=== PATIENT | female | born 1940 | race African-American/Black ===

== ENCOUNTER → 2016-05-05 | Outpatient (CLI) | payer MEDICARE ==
[2015-03-22 15:16] VITALS: BP 141/79
[~2016-05-05] MED LIST: ASPI325T4 PO; ASPI81TA2 PO; CARV25TA2 PO; CLOP75TA27 PO; FURO-69 PO; LOSA100T6 PO; METO50TA2 PO; MULT-208 PO; OMEG1CAP6 PO; SIMV20TA3 PO
--- NOTE | 2016-05-07 10:57 | CARD ---
APPROVED REPORT EXAM: Two-dimensional and M-mode echocardiogram with Doppler and color Doppler. Other Information Quality : GoodHR: 76bpm INDICATION Chronic systolic heart failure. 2D DIMENSIONS RVDd2.6 (2.9-3.5cm)Left Atrium(2D)3.9 (1.6-4.0cm) IVSd1.4 (0.7-1.1cm)Aortic Root(2D)2.7 (2.0-3.7cm) LVDd5.0 (3.9-5.9cm)LVOT Diameter1.8 (1.8-2.4cm) PWd1.4 (0.7-1.1cm)LVDs4.1 (2.5-4.0cm) FS (%) 18.6 %SV45.0 ml Aortic Valve AoV Peak Amado.169.3cm/sAoV VTI32.7cm AO Peak GR.11.5mmHgLVOT Peak Amado.104.4cm/s AO Mean GR.5mmHgAVA (VMAX)1.52cm2 Mitral Valve MV E Htvoamvy679.3cm/sMV E Peak Gr.15mmHg MV DECEL [id number] A Juflhqdu346.7cm/s MV E Mean Gr.5mmHgE/A Ratio0.8 MV A Goljcycc637zw Tricuspid Valve TR P. Lgshnifq279vh/sRAP WIMZKDJS1ccAd TR Peak Gr.76xdLhOYEK66vrSj Pulmonary Vein S1 Foqrovuc16.8cm/sD2 Iayswvny08.2cm/s PVa padphwet082ltdj LEFT VENTRICLE The left ventricle is normal size. There is mild concentric left ventricular hypertrophy. Left ventri maryam systolic function is normal. The Ejection Fraction is 50-55%. There is normal LV segmental wall m otion. Transmitral Doppler flow pattern is Grade I-abnormal relaxation pattern. There is no ventricul ar septal defect visualized. RIGHT VENTRICLE The right ventricle is normal size. The right ventricular systolic function is normal. ATRIA The left atrium size is normal. The right atrium size is normal. The interatrial septum is intact wit h no evidence for an atrial septal defect or patent foramen ovale as noted on 2-D or Doppler imaging. AORTIC VALVE The aortic valve is trileaflet. The aortic valve is mildly calcified. Doppler and Color Flow revealed no significant aortic regurgitation. There is no significant aortic valvular stenosis. MITRAL VALVE The mitral valve leaflets are thickened. There is no evidence of mitral valve prolapse. There is no m itral valve stenosis. Doppler and Color Flow revealed mild mitral regurgitation. TRICUSPID VALVE The tricuspid valve is normal in structure. Doppler and Color Flow revealed mild tricuspid regurgitat ion. The PA pressure was estimated at 22 mmHg. There is no tricuspid valve stenosis. PULMONIC VALVE The pulmonary valve is normal in structure. Doppler and Color Flow revealed mild pulmonic valvular re gurgitation. There is no pulmonic valvular stenosis. GREAT VESSELS The aortic root is normal in size. Normal pulmonary venous flow (Doppler). The IVC is normal in size and collapses >50% with inspiration. PERICARDIAL EFFUSION There is no pleural effusion. There is no evidence of significant pericardial effusion. Critical Notification Critical Value: No <Conclusion> The left ventricle is normal size. Left ventricle systolic function is normal. The Ejection Fraction is 50-55%. There is mild concentric left ventricular hypertrophy. There is no significant aortic valvular stenosis. Doppler and Color Flow revealed no significant aortic regurgitation. Doppler and Color Flow revealed mild mitral regurgitation. Doppler and Color Flow revealed mild tricuspid regurgitation. The PA pressure was estimated at 22 mmHg.
== END | disposition home or self-care (01) ==
LOC: ECHO 13:10
PROVIDERS: ATTEND Internal Medicine Cardiovascular Disease
DX: I50.22 Chronic systolic (congestive) heart failure (principal)
CPT/HCPCS: 93306

== ENCOUNTER → 2016-05-13 | Outpatient (CLI) | payer MEDICARE ==
[2015-03-22 15:16] VITALS: BP 141/79
--- NOTE | 2016-05-13 14:06 | RAD ---
DATE: 05/13/2016 EXAM: DIGITAL SCREEN BILAT W/CAD HISTORY: Left breast cancer, right breast screening COMPARISON: 09/25/2014 This study was interpreted with the benefit of Computerized Aided Detection (CAD). FINDINGS: The right breast is heterogeneously dense. No new or enlarging breast densities are seen. Benign type calcifications are stable. No suspicious microcalcifications have developed. Benign-appearing lymph node type densities in the right axillary region are unchanged. IMPRESSION: Stable right mammograms without evidence of malignancy. BI-RADS CATEGORY: 2 BENIGN FINDING(S) RECOMMENDED FOLLOW-UP: 12M 12 MONTH FOLLOW-UP PQRS compliance statement: Patient information was entered into a reminder system with a target due date for the next mammogram. Mammography is a sensitive method for finding small breast cancers, but it does not detect them all and is not a substitute for careful clinical examination. A negative mammogram does not negate a clinically suspicious finding and should not result in delay in biopsying a clinically suspicious abnormality. "Our facility is accredited by the [employer] Mammography Program."
== END | disposition home or self-care (01) ==
LOC: MAMMO 13:05
PROVIDERS: ATTEND Family Medicine
DX: Z12.31 Encounter for screening mammogram for malignant neoplasm of breast (principal)
CPT/HCPCS: G0202; 77067

== ENCOUNTER → 2017-05-18 | Outpatient (CLI) | payer BC | END | disposition home or self-care (01) | LOC: US 14:52 | DX: I70.203 Unspecified atherosclerosis of native arteries of extremities, bilateral legs (principal) | CPT/HCPCS: 93925 ==

== ENCOUNTER 2017-07-26 08:52 | Outpatient (CLI) | payer BC ==
[2017-07-26 09:38] LABS: ANION GAP 7 (6-14); BLOOD UREA NITROGEN 14 mg/dL (7-20); CALCIUM 9.4 mg/dL (8.5-10.1); CARBON DIOXIDE 31 mmol/L (21-32); CHLORIDE 102 mmol/L (98-107); CREATININE 1.3 mg/dL (0.6-1.0); GFR 48.3; GLUCOSE 107 mg/dL (70-99); POTASSIUM 4.2 mmol/L (3.5-5.1); SODIUM 140 mmol/L (136-145)
[2017-07-26 09:41] LABS: HEMATOCRIT 44.7 % (36.0-47.0); HEMOGLOBIN 14.8 g/dL (12.0-15.5); MEAN CORPUSCULAR HEMOGLOBIN 31 pg (25-35); MEAN CORPUSCULAR HGB CONC 33 g/dL (31-37); MEAN CORPUSCULAR VOLUME 95 fL (79-100); PLATELET COUNT 198 x10^3/uL (140-400); RED BLOOD COUNT 4.73 x10^6/uL (3.50-5.40); RED CELL DISTRIBUTION WIDTH 14.6 % (11.5-14.5); WHITE BLOOD COUNT 4.4 x10^3/uL (4.0-11.0)
[2017-07-26 09:53] LABS: PROTHROMBIN TIME PATIENT 12.4 SEC (11.7-14.0)
[2017-07-26] MEDS: IV 1/2 NORMAL SALINE 1,000 ML IV (10:00)
[2017-07-26] MEDS ORDERED: IODIXANOL 320 MG/ML 100 ML VIAL. (10:15)
[2017-07-26] MEDS ORDERED: LIDOCAINE 2% 20 ML VIAL. (10:16)
[2017-07-26] MEDS ORDERED: fentaNYL PF VIAL 100 MCG/2 ML VIAL (10:37)
[2017-07-26] MEDS ORDERED: MIDAZOLAM HCL/PF 2 MG/2 ML VIAL. (10:38)
[2017-07-26] MEDS ORDERED: CONTRAST GIVEN. MC (11:30)
[2017-07-26] MEDS: LIDOCAINE 2% 20 ML VIAL. IJ (11:43)
[2017-07-26] MEDS: IODIXANOL 320 MG/ML 100 ML VIAL. IART (11:43)
[2017-07-26] MEDS: MIDAZOLAM HCL/PF 2 MG/2 ML VIAL. IV (11:44)
[2017-07-26] MEDS: fentaNYL PF VIAL 100 MCG/2 ML VIAL IV (11:44)
[2017-07-26] MEDS ORDERED: MAGNESIUM HYDROXIDE 2,400 MG/30 ML ORAL.SUSP. PO (12:00)
[2017-07-26] MEDS ORDERED: ACETAMINOPHEN 325 MG TABLET. PO (12:00)
[2017-07-26] MEDS ORDERED: hydrALAZINE 20 MG/ML VIAL. (13:58)
[2017-07-26] MEDS: hydrALAZINE 20 MG/ML VIAL. IVP (14:05)
[2017-07-26] MEDS ORDERED: METOPROLOL TART IMMED RELEASE 50 MG TABLET. (15:05)
[2017-07-26] MEDS: METOPROLOL TART IMMED RELEASE 50 MG TABLET. PO (15:20)
== END 2017-07-26 15:50 | disposition home or self-care (01) ==
LOC: CCL 08:52
DX: I70.213 Atherosclerosis of native arteries of extremities with intermittent claudication, bilateral legs (principal); I70.92 Chronic total occlusion of artery of the extremities; I25.10 Atherosclerotic heart disease of native coronary artery without angina pectoris; E78.00 Pure hypercholesterolemia, unspecified; I10 Essential (primary) hypertension; J44.9 Chronic obstructive pulmonary disease, unspecified; F17.210 Nicotine dependence, cigarettes, uncomplicated; Z86.73 Personal history of transient ischemic attack (TIA), and cerebral infarction without residual deficits; Z95.5 Presence of coronary angioplasty implant and graft; Z95.1 Presence of aortocoronary bypass graft; Z90.49 Acquired absence of other specified parts of digestive tract; Z85.3 Personal history of malignant neoplasm of breast; Z90.12 Acquired absence of left breast and nipple; Z87.39 Personal history of other diseases of the musculoskeletal system and connective tissue
CPT/HCPCS: 36246; 36415; 75630; 80048; 85027; 85610; 99152; 99153; C1769; C1892; J0360; J1644; J2250; J3010

== ENCOUNTER → 2017-08-02 | Outpatient (CLI) | payer BC | END | disposition home or self-care (01) | LOC: MAMMO 14:04 | DX: R92.8 Other abnormal and inconclusive findings on diagnostic imaging of breast (principal) | CPT/HCPCS: 77065 ==

== ENCOUNTER 2017-08-09 08:21 | Observation (INO) | payer BC ==
[~2017-08-09 08:21] MED LIST changes: -ASPI325T4 PO; -ASPI81TA2 PO; -CARV25TA2 PO; -CLOP75TA27 PO; -FURO-69 PO; +IODIXANOL 320 MG/ML 100 ML VIAL.; +LIDOCAINE 2% 20 ML VIAL.; -LOSA100T6 PO; -METO50TA2 PO; -MULT-208 PO; -OMEG1CAP6 PO; -SIMV20TA3 PO
[2017-08-09 09:11] LABS: ANION GAP 8 (6-14); BLOOD UREA NITROGEN 20 mg/dL (7-20); CALCIUM 8.9 mg/dL (8.5-10.1); CARBON DIOXIDE 29 mmol/L (21-32); CHLORIDE 104 mmol/L (98-107); CREATININE 1.5 mg/dL (0.6-1.0); GLUCOSE 111 mg/dL (70-99); POTASSIUM 3.8 mmol/L (3.5-5.1); SODIUM 141 mmol/L (136-145)
[2017-08-09 09:13] LABS: HEMATOCRIT 42.2 % (36.0-47.0); HEMOGLOBIN 13.9 g/dL (12.0-15.5); MEAN CORPUSCULAR HEMOGLOBIN 31 pg (25-35); MEAN CORPUSCULAR HGB CONC 33 g/dL (31-37); MEAN CORPUSCULAR VOLUME 94 fL (79-100); PLATELET COUNT 230 x10^3/uL (140-400); RED BLOOD COUNT 4.48 x10^6/uL (3.50-5.40); RED CELL DISTRIBUTION WIDTH 14.5 % (11.5-14.5); WHITE BLOOD COUNT 4.3 x10^3/uL (4.0-11.0)
[2017-08-09 09:28] LABS: INR 0.9 (0.8-1.1); PARTIAL THROMBOPLASTIN TIME 29 SEC (24-38); PROTHROMBIN TIME PATIENT 11.9 SEC (11.7-14.0)
[2017-08-09] MEDS ORDERED: MIDAZOLAM HCL/PF 2 MG/2 ML VIAL. ×2 (09:33→11:18)
[2017-08-09] MEDS ORDERED: fentaNYL PF VIAL 100 MCG/2 ML VIAL ×3 (09:33→13:07)
[2017-08-09] MEDS ORDERED: VERAPAMIL 5 MG/2 ML VIAL. (09:34)
[2017-08-09] MEDS ORDERED: HEPARIN for IV BOLUS 10,000 UNIT/10 ML VIAL. ×2 (09:34→12:31)
[2017-08-09] MEDS ORDERED: NITROGLYCERIN 200 MCG/2 ML SYRINGE FOR CATH/VASC LAB. (09:34)
[2017-08-09] MEDS ORDERED: ATROPINE 1 MG/10 ML DISP.SYRINGE. (10:05)
[2017-08-09] MEDS ORDERED: FAMOTIDINE 20 MG/2 ML VIAL (10:06)
[2017-08-09] MEDS ORDERED: diphenhydrAMINE 50 MG/ML VIAL (10:06)
[2017-08-09] MEDS ORDERED: methylPREDNISolone SOD SUCC PF 125 MG/2 ML VIAL. (10:06)
[2017-08-09] MEDS ORDERED: hydrALAZINE 20 MG/ML VIAL. (10:14)
[2017-08-09] MEDS: NITROGLYCERIN 200 MCG/2 ML SYRINGE FOR CATH/VASC LAB. IART (12:50)
[2017-08-09] MEDS: VERAPAMIL 5 MG/2 ML VIAL. IART (12:52)
[2017-08-09] MEDS: LIDOCAINE 2% 20 ML VIAL. IJ (12:52)
[2017-08-09] MEDS: MIDAZOLAM HCL/PF 2 MG/2 ML VIAL. IV (12:53)
[2017-08-09] MEDS: fentaNYL PF VIAL 100 MCG/2 ML VIAL IV ×3 (12:53→13:31)
[2017-08-09] MEDS: IODIXANOL 320 MG/ML 100 ML VIAL. IART (12:55)
[2017-08-09] MEDS: HEPARIN for IV BOLUS 10,000 UNIT/10 ML VIAL. IART (13:00)
[2017-08-09] MEDS: HEPARIN for IV BOLUS 10,000 UNIT/10 ML VIAL. IV (13:01)
[2017-08-09] MEDS: CLOPIDOGREL BISULFATE 75 MG TABLET PO (13:45)
[2017-08-09] MEDS ORDERED: MORPHINE SULFATE 4 MG/ML DISP.SYRIN. IV (14:30)
[2017-08-09] MEDS: METOPROLOL TART IMMED RELEASE 50 MG TABLET. PO ×2 (15:04→22:05)
[2017-08-09] MEDS: LOSARTAN POTASSIUM 50 MG TABLET. PO (15:04)
[2017-08-09] MEDS: ACETAMINOPHEN 325 MG TABLET. PO (15:05)
[2017-08-09] MEDS: IV 1/2 NORMAL SALINE 1,000 ML IV ×2 (15:05→23:11)
[2017-08-09] MEDS: ASPIRIN ENTERIC COATED 81 MG TABLET.DR. PO (16:30)
[2017-08-09] MEDS: MORPHINE SULFATE 2 MG/ML DISP.SYRIN. IV (18:23)
[2017-08-09] MEDS ORDERED: METOPROLOL TART IMMED RELEASE 50 MG TABLET. PO (21:00)
[2017-08-09] MEDS: SIMVASTATIN 40 MG TABLET. PO ×2 (21:00→22:05)
[2017-08-10] MEDS: IV 1/2 NORMAL SALINE 1,000 ML IV ×2 (00:10→09:11)
[2017-08-10] MEDS: ACETAMINOPHEN 325 MG TABLET. PO (04:09)
[2017-08-10] MEDS: CLOPIDOGREL BISULFATE 75 MG TABLET PO (08:00)
[2017-08-10] MEDS: ASPIRIN ENTERIC COATED 81 MG TABLET.DR. PO (08:00)
[2017-08-10] MEDS ORDERED: ASPIRIN ENTERIC COATED 81 MG TABLET.DR. PO (08:00)
[2017-08-10] MEDS ORDERED: ASPIRIN CHEWABLE 81 MG TABLET. PO (09:00)
[2017-08-10] MEDS ORDERED: LOSARTAN POTASSIUM PO (09:00)
[2017-08-10] MEDS: METOPROLOL TART IMMED RELEASE 50 MG TABLET. PO (09:00)
[2017-08-10] MEDS: MULTIVITAMIN with MINERAL TABLET. PO (09:00)
[2017-08-10] MEDS: FUROSEMIDE 20 MG TABLET PO (12:58)
[2017-08-10] MEDS: LOSARTAN POTASSIUM 50 MG TABLET. PO (12:59)
[2017-08-10] MEDS ORDERED: MORPHINE SULFATE 4 MG/ML DISP.SYRIN. IV (13:30)
[2017-08-10] MEDS ORDERED: MORPHINE SULFATE 2 MG/ML DISP.SYRIN. IV (13:30)
== END 2017-08-10 16:30 | disposition home or self-care (01) ==
LOC: CCL 08:21 → 2 NORTH 11:00
DX: I70.213 Atherosclerosis of native arteries of extremities with intermittent claudication, bilateral legs (principal); E78.5 Hyperlipidemia, unspecified; I10 Essential (primary) hypertension; I25.10 Atherosclerotic heart disease of native coronary artery without angina pectoris; Z88.0 Allergy status to penicillin; Z79.82 Long term (current) use of aspirin; Z79.899 Other long term (current) drug therapy; Z79.02 Long term (current) use of antithrombotics/antiplatelets
CPT/HCPCS: 36415; 37221; 37226; 37230; 80048; 85027; 85610; 85730; 96374; 96375; 96376; 99152; 99153; C1713; C1769; C1876; C1885; C1892; G0378; G0379; J1644; J2001; J2250; J2270; J3010; J3490

== ENCOUNTER → 2018-06-15 | Outpatient (CLI) | payer BC ==
[2017-08-10 12:59] VITALS: BP 183/93
[~2018-06-15] MED LIST changes: +ASPI-630 PO; +ASPI325T8 PO; +CARV25TA2 PO; +CLOP75TA PO; +CLOP75TA57 PO; +FURO-69 PO; -IODIXANOL 320 MG/ML 100 ML VIAL.; -LIDOCAINE 2% 20 ML VIAL.; +LOSA100T14 PO; +METO50TA6 PO; +MULT-208 PO; +OMEG1CAP6 PO; +SIMV20TA3 PO; +SIMV80TA17 PO
--- NOTE | 2018-06-15 17:20 | CARD ---
MR#: [id number] Date of Study: 06/15/2018 Ordering Physician: JIM FLORES, Referring Physician: JIM FLORES, Tech: Kyung Romeo APPROVED REPORT EXAM: Two-dimensional and M-mode echocardiogram with Doppler and color Doppler. Other Information Quality : AverageHR: 69bpm INDICATION LV Function:Systolic RISK FACTORS Hypertension Hyperlipidemia 2D DIMENSIONS RVDd2.4 (2.9-3.5cm)Left Atrium(2D)4.3 (1.6-4.0cm) IVSd1.3 (0.7-1.1cm)Aortic Root(2D)3.0 (2.0-3.7cm) LVDd5.2 (3.9-5.9cm)LVOT Diameter2.0 (1.8-2.4cm) PWd1.0 (0.7-1.1cm)LVDs4.2 (2.5-4.0cm) FS (%) 18.7 %SV48.7 ml LVEF(%)38.4 (>50%) Aortic Valve AoV Peak Amado.104.6cm/sAoV VTI15.6cm AO Peak GR.4.4mmHgLVOT Peak Amado.74.3cm/s LVOT VTI 15.00cmAO Mean GR.2mmHg CHIDI (VMAX)1.72qk4ADM (VTI)2.91cm2 Mitral Valve MV E Ltfdgmto304.6cm/sMV E Peak Gr.76mmHg MV DECEL [id number] A Qdstmjwm225.6cm/s MV BTR82bwU/A Ratio0.8 MVA (PHT)3.46cm2 TDI E/Lateral E'24.2E/Medial E'25.6 Pulmonary Valve PV Peak Ffmailwc15.8cm/sPV Peak Grad.3mmHg Pulmonary Vein S1 Nnrcxgtb22.4cm/sD2 Eaafeszd98.4cm/s PVa empgvrds275xtsb LEFT VENTRICLE The left ventricle is normal size. There is mild to moderate concentric left ventricular hypertrophy. The left ventricular systolic function is normal and the ejection fraction is within normal range. T he Ejection Fraction is 50-55%. There is normal LV segmental wall motion. Transmitral Doppler flow pa ttern is Grade I-abnormal relaxation pattern. RIGHT VENTRICLE The right ventricle is normal size. There is normal right ventricular wall thickness. The right ventr icular systolic function is normal. ATRIA The left atrium is moderately dilated. The right atrium size is normal. The interatrial septum is int act with no evidence for an atrial septal defect or patent foramen ovale as noted on 2-D or Doppler i maging. AORTIC VALVE The aortic valve is calcified but opens well. Doppler and Color Flow revealed no significant aortic r egurgitation. There is no significant aortic valvular stenosis. MITRAL VALVE The mitral valve is thickened but opens well. There is no evidence of mitral valve prolapse. There is no mitral valve stenosis. Doppler and Color-flow revealed mild mitral regurgitation. TRICUSPID VALVE The tricuspid valve leaflets are thickened , but open well. Doppler and Color Flow revealed trace tri cuspid regurgitation. There is no tricuspid valve stenosis. PULMONIC VALVE The pulmonary valve is normal in structure and function. Doppler and Color Flow revealed mild pulmoni c valvular regurgitation. There is no pulmonic valvular stenosis. GREAT VESSELS The aortic root is normal in size. The IVC is normal in size and collapses >50% with inspiration. PERICARDIAL EFFUSION There is no evidence of significant pericardial effusion. Critical Notification Critical Value: No <Conclusion> The left ventricular systolic function is normal and the ejection fraction is within normal range. Th e Ejection Fraction is 50-55%. There is normal LV segmental wall motion. Signed by : Porter Ahuja, Electronically Approved : 06/15/2018 17:19:24
== END | disposition home or self-care (01) ==
LOC: ECHO 13:18
PROVIDERS: ATTEND Internal Medicine Cardiovascular Disease
DX: I08.8 Other rheumatic multiple valve diseases (principal); I11.0 Hypertensive heart disease with heart failure; I50.22 Chronic systolic (congestive) heart failure; E78.5 Hyperlipidemia, unspecified
CPT/HCPCS: 93306

== ENCOUNTER 2018-09-05 07:12 | Outpatient (CLI) | payer BC ==
[~2018-09-05] VITALS: Ht 158.8 cm; Wt 77.1 kg
[2018-09-05] VITALS (16 sets, daily range): BP systolic 159–211; BP diastolic 86–113
[2018-09-05] MEDS ORDERED: LIDOCAINE 1% Multi-Dose 20 ML VIAL. ONE (07:35)
[2018-09-05] MEDS ORDERED: IODIXANOL 320 MG/ML 100 ML VIAL. ONE ×2 (07:35→09:11)
[2018-09-05] MEDS ORDERED: TELM40TA PO (07:40)
[2018-09-05 07:55] LABS: HEMATOCRIT 45.8 % (36.0-47.0); RED BLOOD COUNT 4.83 x10^6/uL (3.50-5.40); RED CELL DISTRIBUTION WIDTH 14.5 % (11.5-14.5); WHITE BLOOD COUNT 3.9 x10^3/uL (4.0-11.0)
[2018-09-05 08:06] LABS: PROTHROMBIN TIME PATIENT 12.8 SEC (11.7-14.0)
[2018-09-05] MEDS ORDERED: fentaNYL PF VIAL 100 MCG/2 ML VIAL ONE (08:06)
[2018-09-05] MEDS ORDERED: MIDAZOLAM HCL/PF 2 MG/2 ML VIAL. ONE (08:06)
[2018-09-05] MEDS ORDERED: LIDOCAINE 1% Multi-Dose 20 ML VIAL. INJ ONE (08:15)
[2018-09-05] MEDS ORDERED: fentaNYL PF VIAL 100 MCG/2 ML VIAL IV ONE (08:15)
[2018-09-05] MEDS ORDERED: IODIXANOL 320 MG/ML 100 ML VIAL. IART ONE (08:15)
[2018-09-05] MEDS ORDERED: MIDAZOLAM HCL/PF 2 MG/2 ML VIAL. IV ONE (08:15)
[2018-09-05 08:30] LABS: CALCIUM 9.3 mg/dL (8.5-10.1); CREATININE 1.3 mg/dL (0.6-1.0); GFR 48.2; POTASSIUM 3.8 mmol/L (3.5-5.1)
[2018-09-05] MEDS ORDERED: HEPARIN for IV BOLUS 10,000 UNIT/10 ML VIAL. ONE ×2 (08:34→09:26)
[2018-09-05] MEDS ORDERED: HEPARIN for IV BOLUS 10,000 UNIT/10 ML VIAL. IV ONE (09:45)
[2018-09-05] MEDS ORDERED: NITROGLYCERIN 200 MCG/2 ML SYRINGE FOR CATH/VASC LAB. IART ONE (10:00)
[2018-09-05] MEDS ORDERED: ACETAMINOPHEN 325 MG TABLET. PO PRN (10:30)
--- NOTE | 2018-09-05 10:30 | PDOC ---
MODERATE SEDATION ASSESSMENT RISKS/ALTERNATIVES Risks/Alternatives Risks and alternatives of this type of sedation and procedure discussed with: RISK/ALTERNATIVES: Patient H & P ON CHART H & P H & P on chart and reviewed for co-morbid conditions and appropriate labs. H&P ON CHART: Yes STATUS PREG STATUS ASSESSED: N/A MEDS/ALLERGIES REVIEWED Meds/Allergies Reviewed Medications and Allergies including time and route of recently administered narcotics and sedatives. MEDS/ALLERGIES REVIEWED: Yes ASA RATING ASA RATING: III AIRWAY ASSESSMENT Airway Assessment Airway patency, oral function limitations, presence of caps, crowns, dentures, partials, and ability to extend neck assessed. AIRWAY ASSESSMENT: Yes MALLAMPATI SCORE MALLAMPATI SCORE: II PRE-SEDATION ASSESSMENT PRE-SEDATION ASSESSMENT: Yes JIM FLORES MD Sep 05, 2018 10:29
--- NOTE | 2018-09-05 10:52 | CARD ---
MR#: [id number] Date of Study: 09/05/2018 Ordering Physician: JIM FLORES, Referring Physician: JIM FLORES Tech: RT Dino (R) APPROVED REPORT Patient StatusOUT-PATIENT Steam Tender: Beth Richter RT (R) Procedure(s) performed: 1. Aortogram with bilateral lower extremity runoff 2. Successful orbital atherectomy/LITHOGRAPHIC PROOFER/stent placement to left external iliac artery and successful a therectomy/LITHOGRAPHIC PROOFER to left common femoral artery Fluoro time: 15.4 min Contrast: 124 cc Moderate sedation: 84min INDICATION FOR PROCEDURE The indication(s) include : Peripheral artery disease with claudication. PROCEDURE NARRATIVE After explaining the risks, benefits and alternative options, informed consent was obtained from edwin ent. Patient was brought to the cardiac [employer] and her right groin was prepped and draped in the us ual fashion. 20 mL of 2% lidocaine was infiltrated into the skin and subcutaneous tissues for local a nesthesia. Arterial access was obtained the right common femoral artery and a 5 Peruvian sheath was ins erted. 5 Peruvian pigtail catheter was used to perform aortogram with bilateral lower extremity runoff. The aortic dedra was crossed over using a 5 [place]uvian crossover catheter and with the tip positioned i n the left common iliac artery, selective left lower extremity angiography was performed. The followi ng findings were noted. FINDINGS 1. No significant stenosis involving distal descending aorta and bilateral common iliac arteries 2. The right external iliac artery showed patent previously placed stent. The left external iliac ar davian showed heavily calcified multiple areas of 90% stenoses. 3. The right common femoral artery did not show any significant stenosis. The left common femoral ar davian showed calcified 50% stenosis. The profunda femoral arteries bilaterally did not show any signif icant stenosis. 4. The right superficial femoral artery showed 90% stenosis in the proximal segment, 80% stenosis in the proximal to midsegment. The previously placed stent in the mid to distal segment was patent with the proximal portion showing 40% in-stent restenosis. The left superficial femoral artery showed 100 % flush and chronic total occlusion involving the proximal and mid segments with distal reconstitutio n of the distal segment via collaterals from the profunda femoris artery. 5. The popliteal arteries bilaterally did not show any significant stenosis. 6. The right anterior tibial artery showed 100% chronic total occlusion. The previously placed stent in the tibioperoneal trunk was widely patent. The right posterior tibial and peroneal arteries did n ot show any significant stenosis in the proximal to mid segments. The distal segments were not well v isualized. 7. The left anterior tibial artery showed 100% chronic total occlusion. The left tibioperoneal trunk showed 80% stenosis. The left peroneal artery showed 70% stenosis in the proximal segment. The poste rior tibial artery did not show any significant stenosis. INTERVENTION Since patient has robust collaterals arising from the left profunda femoris artery and reconstituting the distal segment of the left superficial femoral artery, we decided to intervene on the left exter nal iliac and common femoral arteries to improve inflow to the profunda femoris. The left superficial femoral artery was flush occluded proximally. We decided to intervene on this vessel via pedal appr oach if she continues to be symptomatic. The sheath in the right groin was exchanged to a 6 Peruvian 45 cm destination sheath was advanced over the aortic dedra and the tip was positioned in the left com mon iliac artery. The lesions in the left external iliac and common femoral arteries were crossed wit h a 0.018 inch command ES guidewire which was then exchanged over a 4 Peruvian angled glide catheter to a Viper wire. Subsequently, multiple atherectomy passes were performed within the lesions in left ex ternal iliac and common femoral arteries using CSI 2.0 orbital atherectomy catheter. These were then dilated with a 6.0 x 100 mm Cedeno [place] balloon. Subsequently, the long external iliac artery steno sis was treated successfully with a 7.0 x 80 mm Cedeno Absolute Pro self-expanding stent. Follow-up a ngiorrhaphy showed resolution of the stenosis to 0% with very good distal flow. Patient tolerated the procedure well. Hemostasis in the right groin was achieved using mynx closure device. There were no immediate complications. Conclusion 1. Severe bilateral lower extremity peripheral artery disease as described above 2. Successful atherectomy/LITHOGRAPHIC PROOFER/stent placement to the left external iliac artery and successful ather ectomy/LITHOGRAPHIC PROOFER to the left common femoral artery. Recommendations 1. Plan for staged atherectomy/LITHOGRAPHIC PROOFER to the right superficial femoral artery in 2-4 weeks. 2. If patient continues to be symptomatic in left lower extremity, we will consider LITHOGRAPHIC PROOFER to chronic t otal occlusion of left superficial femoral artery via pedal access. 3. Vascular risk factor modification including regular exercise regimen. Signed by : Jim Flores, Electronically Approved : 09/05/2018 10:51:55
[2018-09-05] MEDS ORDERED: IV 1/2 NORMAL SALINE 1,000 ML IV SCH (11:00)
--- NOTE | 2018-09-05 14:13 | NUR ---
Discharge Note: ARCHANA WEST Discharge instructions and discharge home medications reviewed with sister and a copy given. All questions have been answered and understanding verbalized. Patient ate lunch without difficulty. The following instructions and handouts were given: Moderate sedation, angioplasty with stent placement and groin site care. Discontinued lines and drains: Right forearm, dressing clean dry intact. Patient discharged to home with sister via wheelchair to private vehicle. Patient scheduled to return Wednesday, September 19, 2018 at 7am for Femoral Runoff with intervention to right lower extremitity. Patient and sister educated and both agrees.
== END 2018-09-05 13:45 | disposition home or self-care (01) ==
LOC: CCL 07:12
PROVIDERS: ATTEND Internal Medicine Cardiovascular Disease
DX: I70.213 Atherosclerosis of native arteries of extremities with intermittent claudication, bilateral legs (principal); I11.0 Hypertensive heart disease with heart failure; I50.9 Heart failure, unspecified; I25.10 Atherosclerotic heart disease of native coronary artery without angina pectoris; I65.22 Occlusion and stenosis of left carotid artery; E78.5 Hyperlipidemia, unspecified; I49.3 Ventricular premature depolarization; Z88.0 Allergy status to penicillin; Z91.018 Allergy to other foods; Z79.82 Long term (current) use of aspirin; Z79.899 Other long term (current) drug therapy; Z95.1 Presence of aortocoronary bypass graft; Z86.73 Personal history of transient ischemic attack (TIA), and cerebral infarction without residual deficits; Z90.49 Acquired absence of other specified parts of digestive tract; Z90.12 Acquired absence of left breast and nipple
CPT/HCPCS: 36415; 37221; 37225; 80048; 85027; 85610; 99152; 99153; C1713; C1724; C1725; C1769; C1876; C1892; C1894; J1644; J2250; J3010; J3490; J7030; Q9967; 75630; G0269

== ENCOUNTER 2018-09-19 07:19 | Observation (INO) | payer BC ==
[2018-09-19] VITALS (10 sets, daily range): BP systolic 149–213; BP diastolic 65–91
[~2018-09-19] VITALS: Ht 162.6 cm; Wt 79.4 kg
[~2018-09-19 07:19] MED LIST changes: +TELM40TA PO
[2018-09-19] MEDS ORDERED: IODIXANOL 320 MG/ML 100 ML VIAL. ONE (07:40)
[2018-09-19] MEDS ORDERED: LIDOCAINE 1% Multi-Dose 20 ML VIAL. ONE (07:40)
[2018-09-19 08:04] LABS: HEMATOCRIT 38.8 % (36.0-47.0); HEMOGLOBIN 12.7 g/dL (12.0-15.5); RED BLOOD COUNT 4.08 x10^6/uL (3.50-5.40); RED CELL DISTRIBUTION WIDTH 14.5 % (11.5-14.5); WHITE BLOOD COUNT 4.4 x10^3/uL (4.0-11.0)
[2018-09-19 08:13] LABS: CREATININE 1.7 mg/dL (0.6-1.0); GFR 35.4; POTASSIUM 4.2 mmol/L (3.5-5.1)
[2018-09-19 08:15] LABS: PROTHROMBIN TIME PATIENT 12.1 SEC (11.7-14.0)
[2018-09-19] MEDS ORDERED: fentaNYL PF VIAL 100 MCG/2 ML VIAL ONE (08:43)
[2018-09-19] MEDS ORDERED: MIDAZOLAM HCL/PF 2 MG/2 ML VIAL. ONE (08:43)
[2018-09-19] MEDS ORDERED: HEPARIN for IV BOLUS 10,000 UNIT/10 ML VIAL. ONE ×2 (09:31→09:35)
[2018-09-19] MEDS ORDERED: NITROGLYCERIN 4 MG/20 ML SYRINGE for CATH LAB. ONE ×2 (09:35→10:00)
[2018-09-19] MEDS ORDERED: dilTIAZem IV PUSH 25 MG/5 ML VIAL ONE (09:35)
[2018-09-19] MEDS ORDERED: diphenhydrAMINE 50 MG/ML VIAL ONE (09:53)
[2018-09-19] MEDS ORDERED: IODIXANOL 320 MG/ML 100 ML VIAL. IART ONE (10:15)
[2018-09-19] MEDS ORDERED: fentaNYL PF VIAL 100 MCG/2 ML VIAL IV ONE (10:15)
[2018-09-19] MEDS ORDERED: MIDAZOLAM HCL/PF 2 MG/2 ML VIAL. IV ONE (10:15)
[2018-09-19] MEDS ORDERED: diphenhydrAMINE 50 MG/ML VIAL IVP ONE (10:15)
[2018-09-19] MEDS ORDERED: HEPARIN for IV BOLUS 10,000 UNIT/10 ML VIAL. IV ONE (10:15)
[2018-09-19] MEDS ORDERED: NITROGLYCERIN 200 MCG/2 ML SYRINGE FOR CATH/VASC LAB. IART ONE (10:15)
[2018-09-19] MEDS ORDERED: LIDOCAINE 1% Multi-Dose 20 ML VIAL. INJ ONE (10:15)
[2018-09-19] MEDS ORDERED: CONTRAST GIVEN. MC PRN (10:30)
--- NOTE | 2018-09-19 10:37 | PDOC ---
MODERATE SEDATION ASSESSMENT RISKS/ALTERNATIVES Risks/Alternatives Risks and alternatives of this type of sedation and procedure discussed with: RISK/ALTERNATIVES: Patient H & P ON CHART H & P H & P on chart and reviewed for co-morbid conditions and appropriate labs. H&P ON CHART: Yes STATUS PREG STATUS ASSESSED: N/A MEDS/ALLERGIES REVIEWED Meds/Allergies Reviewed Medications and Allergies including time and route of recently administered narcotics and sedatives. MEDS/ALLERGIES REVIEWED: Yes ASA RATING ASA RATING: III AIRWAY ASSESSMENT Airway Assessment Airway patency, oral function limitations, presence of caps, crowns, dentures, partials, and ability to extend neck assessed. AIRWAY ASSESSMENT: Yes MALLAMPATI SCORE MALLAMPATI SCORE: II PRE-SEDATION ASSESSMENT PRE-SEDATION ASSESSMENT: Yes JIM FLORES MD Sep 19, 2018 10:37
[2018-09-19] MEDS ORDERED: ACETAMINOPHEN 325 MG TABLET. PO PRN (10:45)
[2018-09-19] MEDS ORDERED: IV 1/2 NORMAL SALINE 1,000 ML IV SCH (11:00)
--- NOTE | 2018-09-19 11:00 | CARD ---
MR#: [id number] Date of Study: 09/19/2018 Ordering Physician: JIM LEWIS, Referring Physician: JIM LEWIS Tech: Arianne Garcia APPROVED REPORT Patient StatusOUT-PATIENT Inspector Technician: Arianne Garcia Procedure(s) performed: Successful orbital atherectomy/[facility] to right superficial femoral artery fl time: 18.6 mins dose: 90 Gy/cm2 contrast: 42 ml sedation: 100 min INDICATION FOR PROCEDURE The indication(s) include : 78-year-old female with history of peripheral artery disease with claudic ation recently underwent [facility] to left external iliac and common femoral arteries on 09/05/2018. She pre sented today for staged atherectomy/[facility] to right SFA.. PROCEDURE NARRATIVE After explaining the risks, benefits and alternative options, informed consent was obtained from edwin ent. Patient was brought to the cardiac [employer] and her left groin was prepped and draped in the usu al fashion. 20 mL of 2% lidocaine was infiltrated into the skin and subcutaneous tissues for local an esthesia. Arterial access was obtained in the left common femoral artery and 6 Swazi 45 cm destinati on sheath was inserted. This was advanced over the aortic dedra with the help of a Crossover cathete r and the tip was positioned in the right common femoral artery. 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 The stenoses in the right superficial femoral artery were crossed with a viper guidewire and multiple orbital atherectomy passes were performed with CSI 2.0 Diamondback atherectomy catheter. Subsequentl y, these lesions were dilated with a 5.5 x 1 20 mm Cedeno [place] balloon. Follow-up angiography showe d resolution of the stenoses with very good distal flow. Patient tolerated the procedure well. Sheath in the left groin was exchanged to a short 6 Swazi sheath that will be removed on the floor when AC T is below 170. There were no immediate complications. Conclusion Successful orbital atherectomy/[facility] to right superficial femoral artery Recommendations Aggressive vascular risk factor modification and regular exercise regimen Signed by : Jim Lewis, Electronically Approved : 09/19/2018 10:59:12
[2018-09-19] MEDS: LOSARTAN POTASSIUM 50 MG TABLET. PO SCH (13:02)
[2018-09-19] MEDS: METOPROLOL TART IMMED RELEASE 50 MG TABLET. PO SCH ×2 (13:02→22:28)
[2018-09-19] MEDS: ASPIRIN CHEWABLE 81 MG TABLET. PO SCH (14:00)
[2018-09-19] MEDS: FUROSEMIDE 20 MG TABLET PO SCH (14:00)
[2018-09-19] MEDS: CLOPIDOGREL BISULFATE 75 MG TABLET PO SCH (14:00)
[2018-09-19] MEDS ORDERED: amLODIPine BESYLATE 5 MG TABLET PO ONE (14:30)
--- NOTE | 2018-09-19 16:21 | PDOC ---
Provider Note Provider Note 09/19/2018 1620 Pt initially noted with uncontrolled HTN, Left groin oozing with large amount. Norvasc given. Became hypotensive. Slightly dizzy. Sheath removed. SB noted in the 40s. Reverse trendelenburg. Suspect vasovagal. Will obtain CBC, monitor cath site, provide IV bolus. Discussed with staff. Atropine if need. be. NICK WINKLER APRN Sep 19, 2018 16:21
[2018-09-19] MEDS ORDERED: IV NORMAL SALINE 500ML BAG 500 ML IV ONE (16:30)
[2018-09-19 16:41] LABS: HEMATOCRIT 38.2 % (36.0-47.0); HEMOGLOBIN 12.3 g/dL (12.0-15.5); RED BLOOD COUNT 3.99 x10^6/uL (3.50-5.40); RED CELL DISTRIBUTION WIDTH 14.7 % (11.5-14.5); WHITE BLOOD COUNT 5.9 x10^3/uL (4.0-11.0)
[2018-09-19] MEDS ORDERED: SIMVASTATIN 40 MG TABLET. PO SCH (21:00)
[2018-09-20 03:00] VITALS: BP 144/59
[2018-09-20 07:32] VITALS: BP 156/78
[2018-09-20] MEDS: CLOPIDOGREL BISULFATE 75 MG TABLET PO SCH (08:55)
[2018-09-20] MEDS: ASPIRIN CHEWABLE 81 MG TABLET. PO SCH (08:56)
[2018-09-20] MEDS: FUROSEMIDE 20 MG TABLET PO SCH (08:56)
[2018-09-20] MEDS: METOPROLOL TART IMMED RELEASE 50 MG TABLET. PO SCH (08:56)
[2018-09-20] MEDS: LOSARTAN POTASSIUM 50 MG TABLET. PO SCH (08:56)
[2018-09-20 10:48] VITALS: BP 137/63
--- NOTE | 2018-09-20 11:12 | NUR ---
SS following for discharge planning. SS reviewed pt chart. Pt is from home and is currently on room air. No discharge needs noted at this time. Discharge order on the chart for home with self care.
--- NOTE | 2018-09-20 15:59 | NUR ---
Discharge Note: ARCHANA WEST Discharge instructions and discharge home medications reviewed with Family Member and a copy given. All questions have been answered and understanding verbalized.
--- NOTE | 2018-09-20 16:19 | PDOC3 ---
Discharge Summary Visit Information Date of Admission: Sep 19, 2018 Date of Discharge: Sep 20, 2018 Admitting Diagnosis: PAD Admitting Diagnosis Comment: PAD CAD CHF Hypertension Hyperlipidemia Final Diagnosis PAD CAD CHF Hypertension Hyperlipidemia Brief Hospital Course Allergies Allergies Coded Allergies Type Severity Reaction Last Updated Verified Pork/Porcine Containing Products Allergy Severe 08/09/17 Yes Penicillins Allergy Intermediate Hives 03/20/15 Yes Vital Signs Vital Signs Date Time Temp Pulse Resp B/P (MAP) Pulse Ox O2 Delivery O2 Flow Rate FiO2 09/20/18 10:48 98.0 66 18 137/63 (87) 96 Room Air 98.0 09/19/18 17:12 2.0 Lab Results Laboratory Tests Test 09/19/18 07:50 09/19/18 10:12 09/19/18 12:54 09/19/18 16:30 White Blood Count 4.4 x10^3/uL (4.0-11.0) 5.9 x10^3/uL (4.0-11.0) Red Blood Count 4.08 x10^6/uL (3.50-5.40) 3.99 x10^6/uL (3.50-5.40) Hemoglobin 12.7 g/dL (12.0-15.5) 12.3 g/dL (12.0-15.5) Hematocrit 38.8 % (36.0-47.0) 38.2 % (36.0-47.0) Mean Corpuscular Volume 95 fL (79-100) 96 fL (79-100) Mean Corpuscular Hemoglobin 31 pg (25-35) 31 pg (25-35) Mean Corpuscular Hemoglobin Concent 33 g/dL (31-37) 32 g/dL (31-37) Red Cell Distribution Width 14.5 % (11.5-14.5) 14.7 % (11.5-14.5) Platelet Count 304 x10^3/uL (140-400) 286 x10^3/uL (140-400) Prothrombin Time 12.1 SEC (11.7-14.0) Prothromb Time International Ratio 0.9 (0.8-1.1) Sodium Level 140 mmol/L (136-145) Potassium Level 4.2 mmol/L (3.5-5.1) Chloride Level 103 mmol/L (98-107) Carbon Dioxide Level 29 mmol/L (21-32) Anion Gap 8 (6-14) Blood Urea Nitrogen 28 mg/dL (7-20) Creatinine 1.7 mg/dL (0.6-1.0) Estimated GFR (Cockcroft-Gault) 35.4 Glucose Level 115 mg/dL (70-99) Calcium Level 9.0 mg/dL (8.5-10.1) Activated Clotting Time 267 sec (92-181) 187 sec (92-181) Laboratory Tests Test 09/19/18 16:30 White Blood Count 5.9 x10^3/uL (4.0-11.0) Red Blood Count 3.99 x10^6/uL (3.50-5.40) Hemoglobin 12.3 g/dL (12.0-15.5) Hematocrit 38.2 % (36.0-47.0) Mean Corpuscular Volume 96 fL (79-100) Mean Corpuscular Hemoglobin 31 pg (25-35) Mean Corpuscular Hemoglobin Concent 32 g/dL (31-37) Red Cell Distribution Width 14.7 % (11.5-14.5) Platelet Count 286 x10^3/uL (140-400) Brief Hospital Course Ms. Hdez is a 78 old female, with a history of CAD s/p CABG, carotid artery stenosis s/p left CEA, and peripheral artery disease with claudication recently underwent [employer]ER to left external iliac and common femoral arteries on 09/05/2018. She presented yesterday for staged atherectomy/TERRAZZO LABORER to right SFA. Patient underwent successful orbital atherectomy/TERRAZZO LABORER to right superficial femoral artery. Tolerated procedure well and monitored overnight. No acute event on telemetry. Lungs CTA. Left groin soft, clean, and dry. No hematoma present. Bilateral LE neurovascular status intact. Discharge Information Condition at Discharge: Improved Follow Up: Weeks (4) Disposition/Orders: D/C to Home Scheduled Aspirin (Aspirin) 81 Mg Tab.chew, 1 TAB PO DAILY, #30 Ref 3 (Reported) Entered as Reported by: JUAN CARLOS CLARKE on 03/17/15 1604 Last Taken: Unknown Dose on 09/19/18 Last Action: Continued on 09/19/18 1219 by HADLEY DENNIS Clopidogrel Bisulfate (Clopidogrel) 75 Mg Tablet, 75 MG PO DAILYWBKFT, #30 Ref 6 Prescribed by: MAGDA KAUR on 08/10/17 1130 Last Taken: Unknown Dose on 09/19/18 Last Action: Continued on 09/19/181218 by HADLEY DENNIS Furosemide (Lasix) 20 Mg Tablet, 1 TAB PO DAILY, #90 Ref 1 (Reported) Entered as Reported by: JAYLYN VAUGHN on 11/26/13 1025 Last Taken: Unknown Dose on 09/18/18 Last Action: Continued on 09/19/181218 by HADLEY DENNIS Metoprolol Tartrate (Metoprolol Tartrate) 50 Mg Tablet, 1 TAB PO BID, #60 Ref 5 (Reported) Entered as Reported by: SUSIE PERERA on 03/22/15 1512 Last Taken: Unknown Dose on 09/19/18 Last Action: Continued on 09/19/181218 by HADLEY DENNIS Multivitamin (Multi-Day Vitamins) 1 Each Tablet, 1 TAB PO DAILY, #30 (Reported) Entered as Reported by: JUAN CARLOS CLARKE on 03/17/15 1604 Last Taken: Unknown Dose on 09/18/18 Last Action: Last Taken Edited on 09/19/18 0822 by SARAH LANCASTER Simvastatin (Simvastatin) 80 Mg Tablet, 1 TAB PO QHS, #90 Ref 3 (Reported) Entered as Reported by: JOSE LEDEZMA on 07/26/17 1233 Last Taken: Unknown Dose on 09/18/18 Last Action: Converted on 09/19/181218 by HADLEY DENNIS Telmisartan (Micardis) 40 Mg Tablet, 1 TAB PO DAILY for rx, #90 Ref 3 (Reported) Entered as Reported by: CODIE CARVALHO on 09/05/18 0740 Last Taken: Unknown Dose on 09/18/18 Last Action: Converted on 09/19/181218 by HADLEY DENNIS Patient Instructions Patient Instructions GENERAL INSTRUCTIONS: 1. Your dressing should be removed prior to leaving the hospital. 2. It is OK to shower the day after your procedure. 3. If you received stents, be sure to carry your stent information card with you in your wallet/purse at all times. 4. Call the office immediately at [phone] if you notice any fever or if there is redness, worsening tenderness/pain, increased bruising, or drainage from the puncture site. 5. Should you have bleeding from the site, lie down immediately & put pressure on the site. The pressure should be hard enough to stop the bleeding. Have the nearest person call 911. DO NOT try to drive to the ER with active bleeding. 6. If you notice a change in color, coolness to touch, or loss of feeling in the affected extremity, come to the emergency room. Please have someone drive you or call 911 if no one is available. DO NOT drive yourself. 7. If you normally take glucophage (metformin), please do not take this medicine for 48 hours following your procedure. 8. DO NOT STOP TAKING YOUR PLAVIX OR ASPIRIN UNLESS IT IS CLEARED BY A ELEVATOR INSTALLER OF YOUR TRAILER MECHANIC AT OUR OFFICE. 9. QUIT SMOKING: the [place] [employer], [place] [employer], & [place] [employer] have cessation resources available on their websites 10. Please have someone available to drive you home from the hospital as you may be limited by sedation medications given during the procedure. Femoral (Groin) access: 1. Do no lifting, pushing, pulling, bending, stooping, or recurrent stair climbing for 3 days following your procedure. 2. Once past the first 3 days, do not do any HEAVY exertion or lifting for one week following the procedure. No gym workouts, running, lifting greater than a gallon of milk, etc 3. Do not submerge in bath or pool for one week. OK to drive 3 days following your procedure, but if going long distance, do not go alone & take hourly breaks to get out of car and walk around. Call the office at [phone] for any questions or concerns. HADLEY MCALLISTER APRN Sep 20, 2018 16:19
== END 2018-09-20 15:00 | disposition home or self-care (01) ==
LOC: CCL 07:19 → INTOOBSV 10:00 → OPSVCIP 10:00 → 2 SOUTH 11:05
PROVIDERS: ADMIT Internal Medicine Cardiovascular Disease; ATTEND Internal Medicine Cardiovascular Disease
DX: I73.9 Peripheral vascular disease, unspecified (principal); I25.10 Atherosclerotic heart disease of native coronary artery without angina pectoris; I11.0 Hypertensive heart disease with heart failure; E78.5 Hyperlipidemia, unspecified; I50.9 Heart failure, unspecified; I65.9 Occlusion and stenosis of unspecified precerebral artery; Z95.1 Presence of aortocoronary bypass graft; I65.29 Occlusion and stenosis of unspecified carotid artery; I50.22 Chronic systolic (congestive) heart failure
CPT/HCPCS: 36415; 37225; 80048; 85027; 85347; 85610; 96374; 96375; C1724; C1725; C1769; C1892; C1894; G0378; G0379; J1200; J1644; J2250; J3010; J3490; J7030; J7040; Q9967; 99152; 99153